=== PATIENT | male | born 1995 | race Caucasian/White ===

== ENCOUNTER → 2017-05-16 | Outpatient (CLI) | payer OTHER ==
[~2017-05-16] MED LIST: CONRAY-43 43% 50ML VIAL (Q9960) As Ordered ONE; LIDOCAINE 1% MDV 20ML VIAL As Ordered ONE; TRIAMCINOLONE ACETONIDE SUSP 40 MG/ML VIAL (J3301) As Ordered ONE
--- NOTE | 2017-05-16 15:46 | REP ---
RIGHT HIP ARTHROGRAM: The procedure was performed by JU Kirby under the direct supervision of Dr. Candelario. The procedure along with its risks, benefits, and complications were discussed with the patient prior to the procedure. Informed consent was obtained both verbally and written. The right femoral neck was localized using fluoroscopic guidance. The skin was marked, prepped and draped in the usual sterile fashion. 1% lidocaine was used for local anesthetic. Using fluoroscopic guidance a 22-gauge spinal needle was inserted and advanced to the femoral neck. 0.5 mL of Conray-60 was injected to verify placement. 10 mL of a solution containing 9 mL of 1% lidocaine and 1 mL of Kenalog 40 was injected into the joint space. The needle was then removed. The patient tolerated the procedure well and had no immediate complications. Fluoroscopy time was 6 seconds. Reviewed by JU Frederick 05/16/2017 03:48 PEdited and Signed by Charles Candelario MD 05/16/2017 05:04 P
== END ==
LOC: M RADPRO 10:53
PROVIDERS: ATTEND Orthopaedic Surgery
DX: M25.551 Pain in right hip (principal)
CPT/HCPCS: 20610; 77002; J3301; Q9960